=== PATIENT | male | born 1960 | race Hispanic/Latino ===

== ENCOUNTER 2022-12-31 16:02 | Inpatient (IN) | payer BC ==
[~2022-12-31] VITALS: Ht 182.9 cm; Wt 67.6 kg
[~2022-12-31 16:02] MED LIST: GABA300C PO; IBUP-1493 PO; METF-444 PO
[2022-12-31] MEDS ORDERED: ZOLPIDEM TARTRATE 5 MG TAB PO PRN (16:30)
[2022-12-31] MEDS ORDERED: ONDANSETRON 4MG INJ IVP PRN (16:30)
[2022-12-31] MEDS ORDERED: DIPHENHYDRAMINE HCL 25 MG CAPSULE PO PRN (16:30)
[2022-12-31 16:52] LABS: BASOPHILS % (AUTO) 0.2 % (0.0-5.0); EOSINOPHILS % (AUTO) 0.1 % (0.0-8.0); HEMATOCRIT 43.1 % (42-54); LYMPHOCYTES % (AUTO) 7.4 % (21.0-51.0); MEAN CORPUSCULAR HEMOGLOBIN 28.7 pg (27.0-33.0); MEAN CORPUSCULAR HGB CONC 33.6 g/dL (32.0-36.0); MEAN CORPUSCULAR VOLUME 85.3 fL (79-99); MONOCYTES % (AUTO) 7.4 % (3.0-13.0); NEUTROPHILS % (AUTO) 84.4 % (40.0-77.0); PLATELET COUNT (AUTO) 225 K/uL (130-400); RED BLOOD CELL COUNT(AUTO) 5.05 MIL/uL (4.50-6.20); RED CELL DISTRIBUTION WIDTH 12.2 % (11.0-15.5); WHITE BLOOD COUNT (AUTO) 11.6 K/uL (4.8-10.8)
[2022-12-31] MEDS: MEROPENEM 1 GM VIAL IVPB SCH ×2 (16:53→23:33)
[2022-12-31] MEDS: 1/2 NS 1000ML 1,000 ML IV SCH ×2 (16:53→23:34)
[2022-12-31] MEDS: ACETAMINOPHEN 325 MG TAB PO PRN ×2 (17:02→21:54)
[2022-12-31] MEDS: INSULIN HUMULIN R 100 UNIT/ML 3ML SQ SCH ×2 (17:02→20:50)
[2022-12-31 17:08] LABS: ALBUMIN 3.2 g/dL (3.5-5.0); BILIRUBIN,DIRECT 0.2 mg/dL (0.0-0.3); CREATININE 0.8 mg/dL (0.5-1.5); POTASSIUM 3.7 mmol/L (3.5-5.1); TOTAL PROTEIN, SERUM 7.7 g/dL (6.0-8.3)
[2022-12-31 17:37] LABS: APPEARANCE,URINE CLEAR (CLEAR); BILIRUBIN,URINE NEGATIVE (NEGATIVE); COLOR,URINE COLORLESS (YELLOW); GLUCOSE, URINE (UA) >=1000 mg/dL (NEGATIVE); KETONES,URINE NEGATIVE (NEGATIVE); LEUKOCYTE ESTERASE ,URINE 75 Leu/uL (NEGATIVE); NITRATE,URINE NEGATIVE (NEGATIVE); OCCULT BLOOD,URINE NEGATIVE (NEGATIVE); PH,URINE 6.5 (5.0-8.0); PROTEIN,URINE NEGATIVE (NEGATIVE); UROBILINOGEN,URINE 0.2 mg/dL (0.2-1.0)
[2022-12-31 17:39] LABS: BACTERIA,URINE FEW /HPF (None Seen); MUCUS,URINE RARE LPF (None Seen)
[2022-12-31 22:00] VITALS: BP 104/58
[2023-01-01] VITALS (7 sets, daily range): BP systolic 109–137; BP diastolic 62–74
[2023-01-01 05:29] LABS: BASOPHILS % (AUTO) 0.2 % (0.0-5.0); EOSINOPHILS % (AUTO) 0.5 % (0.0-8.0); LYMPHOCYTES % (AUTO) 9.5 % (21.0-51.0); MEAN CORPUSCULAR HEMOGLOBIN 28.2 pg (27.0-33.0); MEAN CORPUSCULAR HGB CONC 33.3 g/dL (32.0-36.0); MEAN CORPUSCULAR VOLUME 84.6 fL (79-99); MONOCYTES % (AUTO) 14.2 % (3.0-13.0); NEUTROPHILS % (AUTO) 74.7 % (40.0-77.0); PLATELET COUNT (AUTO) 193 K/uL (130-400); RED BLOOD CELL COUNT(AUTO) 4.61 MIL/uL (4.50-6.20); RED CELL DISTRIBUTION WIDTH 12.2 % (11.0-15.5); WHITE BLOOD COUNT (AUTO) 11.3 K/uL (4.8-10.8)
[2023-01-01 05:58] LABS: CREATININE 0.7 mg/dL (0.5-1.5); POTASSIUM 3.5 mmol/L (3.5-5.1)
[2023-01-01] MEDS: INSULIN HUMULIN R 100 UNIT/ML 3ML SQ SCH ×4 (06:23→21:35)
[2023-01-01] MEDS: 1/2 NS 1000ML 1,000 ML IV SCH ×2 (08:11→17:01)
[2023-01-01] MEDS: MEROPENEM 1 GM VIAL IVPB SCH ×2 (08:11→16:56)
[2023-01-02] MEDS: MEROPENEM 1 GM VIAL IVPB SCH ×4 (00:21→23:27)
[2023-01-02] MEDS: 1/2 NS 1000ML 1,000 ML IV SCH ×3 (00:22→17:42)
[2023-01-02 03:47] VITALS: BP 118/74
[2023-01-02 04:19] LABS: BASOPHILS % (AUTO) 0.3 % (0.0-5.0); EOSINOPHILS % (AUTO) 1.2 % (0.0-8.0); HEMATOCRIT 38.6 % (42-54); LYMPHOCYTES % (AUTO) 17.2 % (21.0-51.0); MEAN CORPUSCULAR HEMOGLOBIN 27.8 pg (27.0-33.0); MEAN CORPUSCULAR HGB CONC 32.6 g/dL (32.0-36.0); MONOCYTES % (AUTO) 15.7 % (3.0-13.0); NEUTROPHILS % (AUTO) 65.1 % (40.0-77.0); PLATELET COUNT (AUTO) 195 K/uL (130-400); RED BLOOD CELL COUNT(AUTO) 4.54 MIL/uL (4.50-6.20); RED CELL DISTRIBUTION WIDTH 12.2 % (11.0-15.5); WHITE BLOOD COUNT (AUTO) 7.3 K/uL (4.8-10.8)
[2023-01-02 04:41] LABS: ALBUMIN 2.5 g/dL (3.5-5.0); CREATININE 0.5 mg/dL (0.5-1.5); POTASSIUM 3.6 mmol/L (3.5-5.1); TOTAL PROTEIN, SERUM 6.4 g/dL (6.0-8.3)
[2023-01-02] MEDS: INSULIN HUMULIN R 100 UNIT/ML 3ML SQ SCH ×3 (06:20→23:33)
[2023-01-02 08:00] VITALS: BP 105/67
[2023-01-02 12:00] VITALS: BP 119/75
[2023-01-02 16:40] VITALS: BP 126/76
[2023-01-02 19:00] VITALS: BP 115/60
[2023-01-02 23:24] VITALS: BP 120/68
[2023-01-03 04:00] VITALS: BP 105/61
[2023-01-03] MEDS: INSULIN HUMULIN R 100 UNIT/ML 3ML SQ SCH ×4 (06:00→22:37)
[2023-01-03] MEDS: 1/2 NS 1000ML 1,000 ML IV SCH ×3 (06:01→15:52)
[2023-01-03 08:00] VITALS: BP 119/71
[2023-01-03] MEDS: MEROPENEM 1 GM VIAL IVPB SCH ×2 (09:45→15:52)
[2023-01-03 12:00] VITALS: BP 112/80
[2023-01-03 15:12] VITALS: BP 121/66
[2023-01-03 20:33] VITALS: BP 112/69
[2023-01-03 23:52] VITALS: BP 117/74
[2023-01-04] MEDS: MEROPENEM 1 GM VIAL IVPB SCH ×3 (01:32→17:19)
[2023-01-04 04:00] VITALS: BP 109/64
[2023-01-04] MEDS: INSULIN HUMULIN R 100 UNIT/ML 3ML SQ SCH ×3 (07:30→17:18)
[2023-01-04 08:28] VITALS: BP 114/69
[2023-01-04] MEDS: 1/2 NS 1000ML 1,000 ML IV SCH ×2 (08:32→17:19)
[2023-01-04 08:53] LABS: INR 0.99 (0.85-1.15); PROTHROMBIN TIME 11.5 SEC (9.6-11.6)
[2023-01-04 08:54] LABS: PARTIAL THROMBOPLASTIN TIME 27.1 SEC (26.3-35.5)
[2023-01-04 11:37] VITALS: BP 116/70
[2023-01-04 16:11] VITALS: BP 116/74
== END 2023-01-04 18:15 | disposition home or self-care (01) | DRG 872 ==
LOC: EDH 16:02 → DIRECT 16:03 → UNDOADMIN 16:08 → 3CH 22:28 → DIRECT 22:28
PROVIDERS: ADMIT Internal Medicine; ATTEND Internal Medicine
DX: A41.9 Sepsis, unspecified organism (principal); N39.0 Urinary tract infection, site not specified; Z16.24 Resistance to multiple antibiotics; E11.69 Type 2 diabetes mellitus with other specified complication; B96.1 Klebsiella pneumoniae [K. pneumoniae] as the cause of diseases classified elsewhere; B96.20 Unspecified Escherichia coli [E. coli] as the cause of diseases classified elsewhere; Z79.899 Other long term (current) drug therapy
CPT/HCPCS: 36415; 80048; 80053; 80076; 81001; 82948; 85025; 85610; 85730; 87040; 87077; 87088; 87186; G0378; J1815; J2185